=== PATIENT | female | born 1995 | race Two or more races ===

== ENCOUNTER 2017-01-02 12:30 | Inpatient (IN) | payer OTHER ==
[~2017-01-02] VITALS: Ht 154.9 cm; Wt 108.3 kg
--- NOTE | ~2017-01-02 | CON ---
PATIENT'S NAME: LUIS CARTER [facility] AGE: 21 Y [address] ROOM: [place] [address] [place] [facility] [place]: 01/02/2017 Consultation DISCHARGE DATE: FAMILY PHYSICIAN: PHYSICIAN, UNKNOWN ATTENDING PHYSICIAN: ZHANE RICKETTS DATE OF CONSULTATION: 01/02/2017 CHIEF COMPLAINT: Abdominal pain. HISTORY OF PRESENT ILLNESS: Luis is a pleasant 21-year-old woman, who had sudden onset of left upper quadrant and epigastric abdominal pain with radiation to the back starting last week. This all occurred soon after eating buttered popcorn and runza. She has never had pain of this type before, but she is quite sensitive to eating fatty and greasy foods, which causes her steatorrhea that has been going on for many years, although she denies ever having associated pain with fatty or greasy foods. The pain was quite severe 10/10 in intensity and crampy in quality when she first initially presented, but has improved dramatically since that time to the point where she has been tolerating a liquid diet over the last couple of days. She initially denied having any associated fevers, but over the last couple of days did develop some fevers up to 102 at the outside hospital. Blood cultures were drawn. One was a contaminate, the other one was negative prior to sending her here. A repeat CT scan performed showed some involving changes of pancreatitis with some peripancreatic fluid, but no fluid collections or abscess, no obvious phlegmon, no pancreatic necrosis evident, and no air within it suggestive of pancreatic infection. At this point, she has very mild discomfort remaining, but overall significantly improved. Since arriving here, she has been afebrile. No other events or complaints. PAST MEDICAL HISTORY: Nonalcoholic fatty liver disease, borderline diabetes, and she is on the autism spectrum. She also has depression and polycystic ovarian syndrome. ALLERGIES: NO KNOWN DRUG ALLERGIES. MEDICATIONS: She takes: 1. Trazodone. 2. Zovia OCPs. 3. Lexapro. 4. Methylphenidate. PATIENT'S NAME: LUIS CARTER [facility] AGE: 21 Y [address] ROOM: [place] [address] [place] [facility] [place]: 01/02/2017 Consultation DISCHARGE DATE: FAMILY PHYSICIAN: PHYSICIAN, UNKNOWN ATTENDING PHYSICIAN: ZHANE RICKETTS 5. Amie. 6. Yvrose. FAMILY HISTORY: Not fully known because she is adopted. She does have a twin sister, who has had a history of gallbladder disease. Her origin is from [facility]. SOCIAL HISTORY: She denies tobacco or alcohol use or abuse. PHYSICAL EXAMINATION: VITAL SIGNS: Afebrile currently. Vital signs are stable. HEENT: Sclerae anicteric. NECK: Supple. HEART: Rate and rhythm regular. ABDOMEN: Soft. Not tender to palpation. Negative Rovsing sign. Obese. No palpable hernias. EXTREMITIES: Bilateral lower extremities are warm. Brisk capillary refill without any significant edema. No obvious calf tenderness or swelling. No obvious skin lesions or rashes. LABORATORY DATA: Laboratories from here are still pending. At the outside facility, her amylase on 12/30/2016 was 397, which was elevated for that lab. White count on 12/31/2016 was 11.4, hemoglobin 9.4, platelets 289. This was elevated from 12/30 in which her white count was 10.3. Her lipase on 12/31 was 533, also elevated for that lab. BUN 7, creatinine 0.5 on 12/30. Liver function tests are normal. Total bilirubin 0.9, ALT 16, AST 17, sodium 138, potassium 3.3, chloride 106, CO2 is 23.6. Lipase on 01/01 was 416. Amylase was 55 on 01/01. Her triglycerides were only 232. Urinalysis on 12/30 was essentially normal. On 01/02, her white count is 10.36, hemoglobin 7.3, platelets are 380. Lipase on 01/02 was 508. Total bilirubin on 01/02 was 0.4, it is down from 0.8 on 12/30. C-reactive protein on 01/02 was 38.2. Lipase was also significantly elevated on 12/29, which was 5549 and lipase on 12/30 was 2576, and those were the highest levels upon admission. CT scan on 01/01/2017 shows pancreatitis with edema and inflammatory changes around the tail, more significant than those on December 29. ASSESSMENT AND PLAN: A 21-year-old woman with acute pancreatitis that is clinically resolving. The CT picture does show some peripancreatic fluid, but nothing suggestive of infected pancreatitis or necrotizing pancreatitis. Clinically, she is improving despite this episode of fever that she had at the outside hospital. Here, she is afebrile and doing well with significantly improved pain and very PATIENT'S NAME: LUIS CARTER [facility] AGE: 21 Y [address] ROOM: [place] [address] [place] [facility] [place]: 01/02/2017 Consultation DISCHARGE DATE: FAMILY PHYSICIAN: PHYSICIAN, UNKNOWN ATTENDING PHYSICIAN: ZHANE RICKETTS little pain at all at this point. Recommend continued conservative management for pancreatitis. As for the etiology of her pancreatitis, somewhat elusive as the ultrasound at the outside facility did not show stones or sludge and somewhat questioning that it may be worthwhile to repeat the ultrasound here to make sure she does not have any sludge that is accounting for this. Again, repeating the triglycerides is also reasonable as she has had no exposure to other possible etiologies, although this may be a combination of her medications that is causing it as well. She also has a strange history of steatorrhea. We could check her stool fat content when she is on a regular diet, and this could be treated symptomatically with pancrelipase supplements if she so desires. At this point, recommend clear liquid diet, advancing to a non-fat or low-fat diet for now. Other possible etiologies of pancreatitis should be considered including IgG autoimmune pancreatitis. If repeat ultrasound still shows no stones, I do not think it is necessary to cut her gallbladder quite yet, although if she has repeated attacks without evidence of explanation, then I would probably recommend removing her gallbladder. She is to make sure this is not the cause of her recurrent pancreatitis if she does indeed have recurrent episodes. I did also talk to them about the possibly getting consultation with a television repairman in regard to her steatorrhea, perhaps there is some rare genetic syndrome that is predisposing her to this that needs to be worked up. Otherwise, definitely no evidence for surgical indication at this time. Please call with any further questions or concerns. MD ARAM FRANCES (JAKE)/meagan /[id number] d: t: 01/02/17 2142, CONSULTATION REPORT
--- NOTE | ~2017-01-02 | CON ---
PATIENT'S NAME: LUIS CARTER [facility] AGE: 22 Y [address] ROOM: [place] [address] [place] [facility] [place]: 01/02/2017 Consultation DISCHARGE DATE: 01/04/2017 FAMILY PHYSICIAN: Physician, Unknown ATTENDING PHYSICIAN: Kimberli Soriano DATE OF CONSULTATION: 01/04/2017 INPATIENT CONSULTATION REFERRING PHYSICIANS: Christopher Soriano MD. CONSULTING PHYSICIAN: Dr. Marleny Armendariz. REASON FOR CONSULTATION: Acute pancreatitis. HISTORY OF PRESENT ILLNESS: The patient is a pleasant 21-year-old white female, who has been kindly referred to us for evaluation of acute pancreatitis. The patient was transferred to us from [place]. According to the mother, last weekend, she had gone to a movie, she had butter popcorns there. On the way back she had burger and fries and she came home with acute pain. She was taken to the hospital. She was given the emergency treatment and then sent home. Next day, she was seen by her primary care provider. She was continuing to have a lot of pain. She was admitted to the hospital in [place]. She continued to spike temperature. There was slight worsening of the CAT scan. She was transferred here for higher level of care. Ever since the patient has come, she has had no fever. Pain had decreased to about 1/10 now. She is tolerating diet now. She has not had any pain medications now. The concern was of her rising lipase which had gone up from the 500 range to 900 range. The patient has not been found to have any gallstones. She does not have any history of alcoholism. The etiology of this remains unexplained. PAST MEDICAL HISTORY: Significant for prediabetes, morbid obesity. Past medical history is also significant for nonalcoholic fatty liver disease. Her HbA1C is usually between 7% to 10%. She also has history of depression and polycystic ovarian syndrome. PATIENT'S NAME: LUIS CARTER [facility] AGE: 22 Y [address] ROOM: [place] [address] [place] [facility] [place]: 01/02/2017 Consultation DISCHARGE DATE: 01/04/2017 FAMILY PHYSICIAN: Physician, Unknown ATTENDING PHYSICIAN: Kimberli Soriano ALLERGIES: NO KNOWN DRUG ALLERGIES. CURRENT MEDICATIONS: 1. Trazodone. 2. Zovia. 3. Escitalopram. 4. Methylphenidate. 5. Prozac. 6. Vistaril. FAMILY HISTORY: She has a half sister who has a history of gallstones and gallbladder surgery for that. SOCIAL HISTORY: Single, unemployed. She does not use any alcohol. No tobacco use. She lives at home with parents and is adopted. REVIEW OF SYSTEMS: A detailed 10-point review of system was done and was found to be negative other than what is mentioned in the history of present illness and past medical history. PHYSICAL EXAMINATION: GENERAL: Today, she is alert and awake. Appears to be in no acute distress. VITAL SIGNS: Temp is 98.2, pulse is 84 per minute, respirations 16, BP is 120/72. HEENT: Reveals no pallor, no icterus. HEAD AND ENT: Oral cavity is normal. Nasal passages are clear. NECK: No masses are felt. No thyromegaly is felt. CHEST: Clear to auscultation bilaterally. No wheezing or rhonchi. ABDOMEN: Soft. There is mild left upper quadrant tenderness. No rigidity, guarding, or rebound. MUSCULOSKELETAL: No obvious injuries or deformities seen. NEUROLOGICAL: Grossly nonfocal. LABORATORY DATA: Recent clinical lab, lipase 966. Liver profile shows normal LFTs with an ALT of 37, AST 29, alkaline phosphatase 80, bilirubin is less than 0.3. Sodium 141, potassium 3.7, chloride is 108, bicarb is 24, BUN is 6, creatinine 0.5. Complete blood count shows WBC 9.4, hemoglobin 11.6, hematocrit 35.5, platelet count is 400,000. CT scan of the abdomen was done in [place]. The last CT scan that we have on record shows findings compatible with pancreatitis, edema and inflammatory changes and fluid starting for the peripancreatic region into PATIENT'S NAME: LUIS CARTER [facility] AGE: 22 Y [address] ROOM: [address] [place], [place] [address] [place] [facility] [place]: 01/02/2017 Consultation DISCHARGE DATE: 01/04/2017 FAMILY PHYSICIAN: Physician, Unknown ATTENDING PHYSICIAN: Kimberli Soriano the left pelvis. These are worse compared to December 29, 2016. IMPRESSION: The patient with a history of acute pancreatitis. The etiology of this is not clear. Differential would also include the usual consisting of alcoholism and gallstone disease, both of which she does not have. She has a normal Calcium level. Finally, I reviewed her other labs in detail. She had slightly increased triglycerides upon admission. She has been n.p.o. since then ane the levels might have dropped because of this. I am not sure of the etiology of her pancreatitis. This is her first attack of acute pancreatitis. I would not be working up her biliary tract at this time any further. She does have a tendency of prediabetes and morbid obesity. Hypertriglyceridemia is a definite possibility and it should be kept in mind. At this time the patient is pain free. She is tolerating diet. She may be discharged home as per hospitalist. However, she does need to have her triglycerides watch very closely. I have advised her to strictly avoid fatty foods. The patient is trying to comply with that. All questions were answered The patient will be followed up in the GI Clinic. MD GUNNAR LEIVA/meagan /[id number] d: 01/04/17 2254 t: 01/07/17 1747, CONSULTATION REPORT
--- NOTE | ~2017-01-02 | DS ---
PATIENT'S NAME: LUIS CARTER [facility] AGE: 22 Y [address] ROOM: [address] [address] [place] [facility] [place]: 01/02/2017 Discharge Summary DISCHARGE DATE: 01/04/2017 FAMILY PHYSICIAN: Physician, Unknown ATTENDING PHYSICIAN: Kimberli Soriano PRINCIPAL DIAGNOSES: 1. Acute pancreatitis. 2. Morbid obesity. 3. Prediabetes. 4. Attention deficit hyperactivity disorder. HOSPITAL COURSE: This is a 22-year-old female, who was transferred from [place] for evaluation of acute pancreatitis. The patient initially presented at [place] with complaints of abdominal pain and was later diagnosed with acute pancreatitis. She had an ultrasound done, which did not show any stone or any biliary issues to suggest as a cause. The patient does not have any clear history as far as use of alcohol or any medications to explain her pancreatitis. She did have apparently an elevated triglyceride levels at presentation there, but these were checked here during her admission, and the levels were not high enough to explain acute pancreatitis. In any case, the patient was also seen by General Surgery and GI, especially since there were some concerns of possible worsening pancreatitis as per CAT scan done at [place], but overall, the patient continued to show clinical improvement with conservative management. As far as etiology, hypertriglyceridemia continues to be a likely cause. The plan is for the patient to follow up in GI Clinic and continue with conservative management and stay on a low-fat diet, and as this is her first episode, she is to continue to watch for further symptoms. The patient at the time of discharge was tolerating p.o. intake very well, and she is to follow up with her primary care physician in 14 days and the GI Clinic within 1 week as well. MEDICATIONS: Per SEP. DISPOSITION: Home. FOLLOWUP: Follow up with PCP in 2 weeks and GI clinic in 1 week. MD CHAYO HOANG/rachnal PATIENT'S NAME: LUIS CARTER [facility] AGE: 22 Y [address] ROOM: [address] [address] [place] [facility] [place]: 01/02/2017 Discharge Summary DISCHARGE DATE: 01/04/2017 FAMILY PHYSICIAN: Seth Gamboa ATTENDING PHYSICIAN: Kimberli Soriano /[id number] d: 03/21/17 0323 t: 03/25/17 1401, DISCHARGE SUMMARY
--- NOTE | ~2017-01-02 | HP ---
PATIENT'S NAME: LUIS CARTER [facility] AGE: 21 Y [address] ROOM: [place] [address] LOCATION: [facility] [place] ADMIT DATE: 01/02/2017 History & Physical DISCHARGE DATE: FAMILY PHYSICIAN: PHYSICIAN, UNKNOWN ATTENDING PHYSICIAN: ZHANE RICKETTS DATE OF SERVICE: CHIEF COMPLAINT: Abdominal pain and acute pancreatitis. HISTORY OF PRESENT ILLNESS: This is a 21-year-old female who has a history of morbid obesity, who is presenting here with complaints of abdominal pain. The patient is a transfer from [place] after she initially presented with abdominal pain about 5 days ago and subsequently diagnosed with acute pancreatitis. The patient has been getting supportive care during her stay, however, in the last 24 hours, the patient started spiking fever few times including temperature max of 101 as of this morning. The patient during my visit today states that her abdominal pain mostly localized to the left lower quadrant and generalized left side, however, is significantly better than how it was when she initially presented. The patient also reports that she was able to tolerate clear liquid diet yesterday and did fine with that. The patient otherwise denies any chest pain, shortness of breath, dysuria, or frequency of urination. Has had a bowel movement yesterday, it was somewhat loose. PAST MEDICAL HISTORY: 1. Prediabetes. 2. Morbid obesity. SOCIAL HISTORY: The patient is adopted and lives at home with parents. No history of smoking, excessive alcohol, or drug use. FAMILY HISTORY: The patient has a half-sister who has a history of gallstones and gallbladder surgery for that. REVIEW OF SYSTEMS: All systems have been reviewed and were all negative except as described in the HPI. PHYSICAL EXAMINATION: VITAL SIGNS: Reviewed. Had a temperature max 101 on review of chart at presentation, the patient is afebrile here. Vital signs stable. PATIENT'S NAME: LUIS CARTER [facility] AGE: 21 Y [address] ROOM: [place] [address] LOCATION: [facility] [place] ADMIT DATE: 01/02/2017 History & Physical DISCHARGE DATE: FAMILY PHYSICIAN: PHYSICIAN, UNKNOWN ATTENDING PHYSICIAN: ZHANE RICKETTS GENERAL: The patient is awake, alert, and oriented x3, in no significant distress. Obese-appearing patient. HEENT. Moist mucous membranes. No scleral or conjunctival pallor noted. HEART: S1, S2, regular rate and rhythm. CHEST: Clear to auscultation bilaterally. ABDOMEN: Soft, mild tenderness over the epigastrium and left side of the abdomen. Has positive bowel sounds. NEURO: Grossly nonfocal. SKIN: Without rash or lesions. MUSCULOSKELETAL: No obvious swelling, erythema, or tenderness of joints noted. SIGNIFICANT LABS: White count of greater than 12,000. Lipase greater than 2500 several days ago at presentation at [place]. ASSESSMENT AND PLAN: 1. Acute pancreatitis, first episode. Upon workup at [place], she was found to have any gallstones. No significant history of alcohol use to contribute this to. Per report, the patient apparently had lipemic-looking blood sample at first draw at that facility and has possible concerns for high triglycerides as a cause for this. I will repeat a lipid panel and see if anything shows up. The patient although clinically seems to be doing better, due to her persistent fever spikes in the last 24 hours, the patient was transferred here. A repeat CAT scan of the abdomen does show some increased edema and swelling around the pancreas, but clinically is getting better, so perhaps the imaging findings are lagging her clinical improvement. In any case, I have talked to Dr. Leggett from General Surgery and will be evaluating the patient as well. She was given a couple doses of antibiotics at [place] and at this point, I will just hold antibiotics and continue supportive care with aggressive IV fluids and pain management and continue to monitor clinically and advance her diet as tolerated. 2. Prediabetes. This is in relation to her morbid obesity and would need stringent diet and lifestyle modifications. 3. Morbid obesity due to excess calories. Lifestyle modifications advised as above as well. 4. Deep venous thrombosis prophylaxis. We will ambulate the patient and use SCDs. MD CHAYO HOANG/meagan PATIENT'S NAME: LUIS CARTER [facility] AGE: 21 Y [address] ROOM: [place] [address] LOCATION: [facility] [place] ADMIT DATE: 01/02/2017 History & Physical DISCHARGE DATE: FAMILY PHYSICIAN: PHYSICIAN, REGULO ATTENDING PHYSICIAN: ZHANE RICKETTS /[id number] D: [id number] T: [id number] HISTORY & PHYSICAL
[~2017-01-02 12:30] MED LIST: DESYREL50 MG PO; LEXAPRO10 MG PO; LEXAPRO20 MG PO; PROZAC20 MG PO; VISTARIL50 MG PO; ZOVIA 1-35E TA1 EACH PO
[2017-01-02] MEDS ORDERED: ZOVIA 1-35E TA1 EACH PO (14:57)
[2017-01-02] MEDS ORDERED: RITALIN 10MG10 MG PO (14:58)
[2017-01-02] MEDS ORDERED: LEXAPRO20 MG PO (14:59)
[2017-01-02 16:48] LABS: BASOPHIL % 0.3 %; EOSINOPHIL # 0.1 K/uL (0.0-0.5); EOSINOPHIL % 1.3 %; HEMATOCRIT 33.7 % (33.0-46.0); HEMOGLOBIN 11.3 g/dL (11.0-15.0); IMMATURE GRANULOCYTE # 0.1 K/uL (0.0-0.3); IMMATURE GRANULOCYTE % 0.5 %; LYMPHOCYTE # 2.1 K/uL (0.8-4.0); LYMPHOCYTE % 20.1 %; MCH 28.8 pg (27.0-34.0); MCHC 33.5 gm/dL (32.0-36.5); MONOCYTE # 0.7 K/uL (0.0-1.0); MONOCYTE % 6.5 %; MPV 8.9 fl (9.4-12.4); NEUTROPHIL # (ANC) 7.3 K/uL (1.8-7.8); NEUTROPHIL % 71.3 %; NRBC % 0 /100WBC (0-0.00); RBC 3.92 M/uL (3.50-5.00); RDW-CV 13.2 % (11.9-14.6); WBC 10.2 K/uL (4.0-11.0)
[2017-01-02 16:49] LABS: PLATELET COUNT 388 K/uL (150-450)
[2017-01-02 17:04] LABS: ANION GAP 14.7 (10.0-19.0); BLOOD UREA NITROGEN 4 mg/dL (6-24); CALCIUM 9.3 mg/dL (8.5-10.5); CHLORIDE 104 mMol/L (96-110); CO2 25 mMol/L (22-32); CREATININE 0.5 mg/dL (0.5-1.1); ESTIMATED GFR (MDRD EQUATION) > 60; MAGNESIUM 2.2 mg/dL (1.8-2.6); POTASSIUM 3.7 mMol/L (3.7-5.1); SODIUM 140 mMol/L (135-145)
[2017-01-02 18:21] LABS: BILIRUBIN URINE NEGATIVE (NEGATIVE); BLOOD URINE NEGATIVE /UL (NEGATIVE); GLUCOSE URINE NEGATIVE (NEGATIVE); KETONE URINE 50 mg/dL (NEGATIVE); LEUKOCYTES URINE 25 /UL (NEGATIVE); NITRITE URINE NEGATIVE (NEGATIVE); PROTEIN URINE NEGATIVE (NEGATIVE); SPEC GRAVITY URINE 1.015 (1.003-1.035); UROBILINOGEN URINE NORMAL (NORMAL)
[2017-01-02 18:22] LABS: COLOR URINE YELLOW (YELLOW); TURBIDITY URINE CLEAR (CLEAR)
[2017-01-02 18:37] LABS: RBC URINE 0-2 #/HPF (NEGATIVE)
[2017-01-02 18:38] LABS: BACTERIA URINE RARE (NEGATIVE)
[2017-01-02 18:39] LABS: WBC CLUMPS URINE FEW (NEGATIVE)
[2017-01-03 04:56] LABS: BASOPHIL % 0.3 %; EOSINOPHIL # 0.2 K/uL (0.0-0.5); EOSINOPHIL % 1.7 %; HEMOGLOBIN 10.7 g/dL (11.0-15.0); IMMATURE GRANULOCYTE # 0.1 K/uL (0.0-0.3); IMMATURE GRANULOCYTE % 0.5 %; LYMPHOCYTE # 2.6 K/uL (0.8-4.0); LYMPHOCYTE % 27.9 %; MCH 28.8 pg (27.0-34.0); MCHC 33.4 gm/dL (32.0-36.5); MONOCYTE # 0.7 K/uL (0.0-1.0); MONOCYTE % 7.2 %; NEUTROPHIL # (ANC) 5.8 K/uL (1.8-7.8); NEUTROPHIL % 62.4 %; NRBC % 0 /100WBC (0-0.00); PLATELET COUNT 369 K/uL (150-450); RBC 3.72 M/uL (3.50-5.00); WBC 9.4 K/uL (4.0-11.0)
[2017-01-03 05:20] LABS: ANION GAP 14.4 (10.0-19.0); BLOOD UREA NITROGEN 5 mg/dL (6-24); CALCIUM 8.4 mg/dL (8.5-10.5); CHLORIDE 104 mMol/L (96-110); CO2 25 mMol/L (22-32); CREATININE 0.5 mg/dL (0.5-1.1); ESTIMATED GFR (MDRD EQUATION) > 60; MAGNESIUM 2.1 mg/dL (1.8-2.6); POTASSIUM 3.4 mMol/L (3.7-5.1); SODIUM 140 mMol/L (135-145)
[2017-01-03 14:00] LABS: ALBUMIN 2.7 gm/dL (3.5-5.0)
[2017-01-03 14:03] LABS: TOTAL BILIRUBIN 0.3 mg/dL (0.0-1.5)
[2017-01-04 04:35] LABS: BASOPHIL # 0.1 K/uL (0.0-0.2); BASOPHIL % 0.5 %; EOSINOPHIL # 0.2 K/uL (0.0-0.5); HEMATOCRIT 35.5 % (33.0-46.0); HEMOGLOBIN 11.6 g/dL (11.0-15.0); IMMATURE GRANULOCYTE # 0.1 K/uL (0.0-0.3); IMMATURE GRANULOCYTE % 0.6 %; LYMPHOCYTE % 31.6 %; MCHC 32.7 gm/dL (32.0-36.5); MCV 88.8 fl (83.0-98.0); MONOCYTE # 0.5 K/uL (0.0-1.0); MONOCYTE % 5.7 %; MPV 9.4 fl (9.4-12.4); NEUTROPHIL # (ANC) 5.6 K/uL (1.8-7.8); NEUTROPHIL % 59.6 %; NRBC % 0 /100WBC (0-0.00); PLATELET COUNT 400 K/uL (150-450); RDW-CV 13.2 % (11.9-14.6); WBC 9.4 K/uL (4.0-11.0)
[2017-01-04 04:52] LABS: ANION GAP 12.7 (10.0-19.0); BLOOD UREA NITROGEN 6 mg/dL (6-24); CALCIUM 8.7 mg/dL (8.5-10.5); CHLORIDE 108 mMol/L (96-110); CO2 24 mMol/L (22-32); CREATININE 0.5 mg/dL (0.5-1.1); ESTIMATED GFR (MDRD EQUATION) > 60; MAGNESIUM 2.3 mg/dL (1.8-2.6); POTASSIUM 3.7 mMol/L (3.7-5.1); SODIUM 141 mMol/L (135-145)
[2017-01-04 11:09] LABS: ALK PHOS 80 IU/L (33-138); ALT 37 IU/L (12-78); AST 29 IU/L (10-40); TOTAL BILIRUBIN 0.3 mg/dL (0.0-1.5); TOTAL PROTEIN 7.6 g/dL (6.0-8.4)
== END 2017-01-04 20:35 | disposition disaster alternative care site (69) | DRG 439 ==
LOC: GMSU 12:30
PROVIDERS: Internal Medicine; ADMIT Internal Medicine
DX: K85.90 Acute pancreatitis without necrosis or infection, unspecified (principal); Z68.42 Body mass index [BMI] 45.0-49.9, adult; K76.0 Fatty (change of) liver, not elsewhere classified; F84.0 Autistic disorder; E66.01 Morbid (severe) obesity due to excess calories; R73.03 Prediabetes; R50.9 Fever, unspecified; E78.1 Pure hyperglyceridemia; E28.2 Polycystic ovarian syndrome; F32.9 Major depressive disorder, single episode, unspecified
CPT/HCPCS: J7030